=== PATIENT | female | born 1985 | race African-American/Black ===

== ENCOUNTER 2020-01-18 22:28 | Emergency (ER) | payer SELFPAY ==
[~2020-01-18] VITALS: Ht 167.6 cm; Wt 84.0 kg
[2020-01-18 23:13] VITALS: BP 137/80
== END 2020-01-19 00:30 | disposition left against medical advice (07) ==
LOC: ER 22:28
DX: R68.89 Other general symptoms and signs (principal); Z53.21 Procedure and treatment not carried out due to patient leaving prior to being seen by health care provider